=== PATIENT | male | born 1980 | race Caucasian/White ===

== ENCOUNTER 2017-11-03 13:23 | Emergency (ER) | payer OTHER ==
[~2017-11-03] VITALS: Ht 165.1 cm; Wt 72.6 kg
[~2017-11-03 13:23] MED LIST: AZIT250 PO; Benadryl 50 mg50 MG PO; FLUC200 PO; FLUO10 PO; FLUO20 PO; GABA300 PO; GABA800 PO; HYDR1TAB94 PO; Norco 5-325 Ta1 EACH PO; OXYACE5T PO; PHENA200 PO; PREDNISONE TAPER; PSEU120ER PO; Prozac40 MG PO; SULTRIDS PO
[2017-11-03] MEDS ORDERED: Hydrocodone-Ap1 EA23 PO (13:50)
[2017-11-03] MEDS ORDERED: GABA600 PO (13:50)
[2017-11-03] MEDS ORDERED: Prozac40 MG PO (13:50)
== END 2017-11-03 14:08 | disposition home or self-care (01) ==
LOC: ER 13:23
DX: R25.2 Cramp and spasm (principal); R53.81 Other malaise; R53.83 Other fatigue; R63.1 Polydipsia; K13.0 Diseases of lips; F32.9 Major depressive disorder, single episode, unspecified; Z87.442 Personal history of urinary calculi; Z88.0 Allergy status to penicillin
CPT/HCPCS: 99283

== ENCOUNTER 2018-04-02 23:21 | Emergency (ER) | payer OTHER ==
[~2018-04-02] VITALS: Ht 167.6 cm; Wt 63.5 kg
[~2018-04-02 23:21] MED LIST changes: +GABA600 PO; +Hydrocodone-Ap1 EA23 PO
[2018-04-03 00:04] LABS: Source, Urine Clean Catch
[2018-04-03 00:19] LABS: Blood, Urine 5+ (Neg); Glucose Qualitative, Urine Neg (Neg); Ketones, Urine 1+ (Neg); Leukocyte Esterase, Urine 3+ (Neg); Nitrite, Urine Pos (Neg); Protein, Urine 4+ (Neg); Specific Gravity, Urine 1.025 (1.003-1.022); Urobilinogen, Urine 1+ (Normal)
[2018-04-03 00:20] LABS: Appearance, Urine Turbid (Clear); Bilirubin, Urine 1+ (Neg); Color, Urine Brown (P-Yellow)
[2018-04-03 00:33] LABS: Bacteria Many /hpf; Red Blood Cells, Urine TNTC /hpf (0-2); Squamous Epithelial Cells Not Seen /hpf (Few); White Blood Cells, Urine 50-100 /hpf (0-5)
[2018-04-03 02:42] LABS: BASOPHILS ABSOLUTE AUTO 0.03 K/mm3 (0.00-0.23); BASOPHILS PERCENT AUTO 0 % (0-2); EOSINOPHILS ABSOLUTE AUTO 0.28 K/mm3 (0.00-0.68); EOSINOPHILS PERCENT AUTO 3 % (0-6); Hematocrit 46.7 % (37.0-53.0); Hemoglobin 15.5 g/dL (13.5-17.5); IMMATURE GRAN ABSOLUTE AUTO 0.02 K/mm3 (0.00-0.10); IMMATURE GRAN PERCENT AUTO 0 % (0-1); LYMPHOCYTES PERCENT AUTO 21 % (21-46); MONOCYTES ABSOLUTE AUTO 0.89 K/mm3 (0.16-1.47); MONOCYTES PERCENT AUTO 10 % (4-13); Mean Corpuscular HGB 30.4 pg (26.0-34.0); Mean Corpuscular HGB Conc 33.2 g/dL (31.5-36.5); Mean Corpuscular Volume 92 fL (80-100); Mean Platelet Volume 10.8 fL (9.1-12.4); NEUTROPHILS PERCENT AUTO 65 % (41-73); Platelet Count 257 K/mm3 (150-400); RDW Coefficient Variation 13.3 % (11.7-14.2); RDW Standard Deviation 44.9 fL (35.1-46.3); White Blood Cell Count 9.02 K/mm3 (4.00-11.30)
[2018-04-03 03:16] LABS: Alanine Aminotransfer (ALT/SGP 24 U/L (12-78); Albumin, Blood 3.5 g/dL (3.4-5.0); Albumin/Globulin Ratio 1.1 (0.8-1.8); Alk Phos 70 U/L (50-136); Anion Gap 6 mmol/L (6-16); Aspartate Aminotrans (AST/SGOT 23 U/L (12-37); Bilirubin, Total 0.3 mg/dL (0.1-1.0); Blood Urea Nitrogen 23 mg/dL (8-24); Bun/Creatinine Ratio 24.7 (12.0-20.0); CO2, Blood 31 mmol/L (21-32); CPK Creatine Kinase 125 U/L (39-308); Chloride, Blood 105 mmol/L (98-108); Creatinine, Blood 0.93 mg/dL (0.60-1.20); Globulin, Blood 3.3 g/dL (2.2-4.0); Glomerular Filtration Rate >60 (60-); Glucose, Blood 129 mg/dL (70-99); Potassium, Blood 3.5 mmol/L (3.5-5.5); Sodium, Blood 142 mmol/L (136-145); Total Protein, Blood 6.8 g/dL (6.4-8.2)
[2018-04-03] MEDS ORDERED: Percocet 5-3251 EACH PO (05:54)
[2018-04-03] MEDS ORDERED: Cipro500 MG PO (05:54)
[2018-04-03 08:07] LABS: U Amphetamine Screen DETECTED; U Barbituate Screen Not Detected; U Benzodiazapine Screen Not Detected; U Buprenorphine Screen Not Detected; U Cannabinoids Screen DETECTED; U Cocaine Screen Not Detected; U Methadone Screen Not Detected; U Methamphetamine Screen Not Detected; U Opiates Screen Not Detected; U Oxycodone Screen Not Detected; U Phencyclidine Screen Not Detected; U Propoxyphene Screen Not Detected
== END 2018-04-03 09:28 | disposition home or self-care (01) ==
LOC: ER 23:21
PROVIDERS: Emergency Medicine
DX: N13.2 Hydronephrosis with renal and ureteral calculous obstruction (principal); N30.90 Cystitis, unspecified without hematuria; F32.9 Major depressive disorder, single episode, unspecified; Z88.0 Allergy status to penicillin
CPT/HCPCS: 36415; 74176; 80053; 81001; 82550; 83690; 85025; 87086; 96360; 99284-25; J7030

== ENCOUNTER 2018-10-07 14:00 | Emergency (ER) | payer MEDICAID ==
[~2018-10-07] VITALS: Ht 162.6 cm; Wt 70.3 kg
[~2018-10-07 14:00] MED LIST changes: +Cipro500 MG PO; +Percocet 5-3251 EACH PO
[2018-10-07] MEDS ORDERED: Cleocin HCl300 MG PO (14:27)
[2018-10-07] MEDS ORDERED: OLAN10 PO (16:09)
[2018-10-07] MEDS ORDERED: FLUO10 (16:10)
[2018-10-07] MEDS ORDERED: GABA800 (16:10)
== END 2018-10-07 14:30 | disposition home or self-care (01) ==
LOC: ER 14:00
DX: K02.9 Dental caries, unspecified (principal); F32.9 Major depressive disorder, single episode, unspecified; F17.210 Nicotine dependence, cigarettes, uncomplicated; Z88.0 Allergy status to penicillin; Z79.2 Long term (current) use of antibiotics; Z87.442 Personal history of urinary calculi
CPT/HCPCS: 99282

== ENCOUNTER 2018-12-09 03:57 | Emergency (ER) | payer OTHER ==
[~2018-12-09] VITALS: Ht 167.6 cm; Wt 72.6 kg
[~2018-12-09 03:57] MED LIST changes: +Cleocin HCl300 MG PO; +FLUO10; +GABA800; +OLAN10 PO
[2018-12-09] MEDS ORDERED: Lotrimin AF90 GM TOP ×2 (08:13→08:30)
[2018-12-09] MEDS ORDERED: OLAN10 PO ×2 (08:13→08:30)
[2018-12-09] MEDS ORDERED: FLUO10 PO ×2 (08:13→08:30)
[2018-12-09] MEDS ORDERED: GABA800 PO ×2 (08:13→08:30)
== END 2018-12-09 08:35 | disposition home or self-care (01) ==
LOC: ER 03:57
DX: B35.3 Tinea pedis (principal); Z76.0 Encounter for issue of repeat prescription; F31.9 Bipolar disorder, unspecified; F20.9 Schizophrenia, unspecified; F17.210 Nicotine dependence, cigarettes, uncomplicated; Z88.0 Allergy status to penicillin; Z79.899 Other long term (current) drug therapy
CPT/HCPCS: 99283

== ENCOUNTER 2018-12-18 08:08 | Emergency (ER) | payer OTHER ==
[~2018-12-18] VITALS: Ht 167.6 cm; Wt 74.8 kg
[~2018-12-18 08:08] MED LIST changes: +Lotrimin AF90 GM TOP
[2018-12-18 09:50] LABS: BASOPHILS ABSOLUTE AUTO 0.07 K/mm3 (0.00-0.23); BASOPHILS PERCENT AUTO 0 % (0-2); EOSINOPHILS ABSOLUTE AUTO 0.14 K/mm3 (0.00-0.68); EOSINOPHILS PERCENT AUTO 1 % (0-6); Hematocrit 52.4 % (37.0-53.0); Hemoglobin 17.3 g/dL (13.5-17.5); IMMATURE GRAN ABSOLUTE AUTO 0.19 K/mm3 (0.00-0.10); IMMATURE GRAN PERCENT AUTO 1 % (0-1); LYMPHOCYTES ABSOLUTE AUTO 1.62 K/mm3 (0.84-5.20); LYMPHOCYTES PERCENT AUTO 9 % (21-46); MONOCYTES ABSOLUTE AUTO 1.78 K/mm3 (0.16-1.47); MONOCYTES PERCENT AUTO 10 % (4-13); Mean Corpuscular HGB 30.5 pg (26.0-34.0); Mean Corpuscular Volume 92 fL (80-100); Mean Platelet Volume 10.7 fL (9.1-12.4); NEUTROPHILS ABSOLUTE AUTO 13.64 K/mm3 (1.96-9.15); NEUTROPHILS PERCENT AUTO 78 % (41-73); Platelet Count 301 K/mm3 (150-400); RDW Coefficient Variation 13.9 % (11.7-14.2); RDW Standard Deviation 47.9 fL (35.1-46.3); Red Blood Cell Count 5.67 M/mm3 (4.30-5.90); White Blood Cell Count 17.44 K/mm3 (4.00-11.30)
[2018-12-18 10:14] LABS: Alanine Aminotransfer (ALT/SGP 58 U/L (12-78); Albumin, Blood 4.5 g/dL (3.4-5.0); Albumin/Globulin Ratio 1.1 (0.8-1.8); Alk Phos 110 U/L (50-136); Anion Gap 9 mmol/L (6-16); Aspartate Aminotrans (AST/SGOT 54 U/L (12-37); Bilirubin, Total 0.5 mg/dL (0.1-1.0); Blood Urea Nitrogen 17 mg/dL (8-24); Bun/Creatinine Ratio 25.4 (12.0-20.0); CO2, Blood 28 mmol/L (21-32); Calcium, Blood 10.1 mg/dL (8.5-10.1); Chloride, Blood 99 mmol/L (98-108); Creatinine, Blood 0.67 mg/dL (0.60-1.20); Glomerular Filtration Rate >60 (60-); Glucose, Blood 109 mg/dL (70-99); Potassium, Blood 4.5 mmol/L (3.5-5.5); Sodium, Blood 136 mmol/L (136-145); Total Protein, Blood 8.5 g/dL (6.4-8.2)
[2018-12-18] MEDS ORDERED: Vibramycin100 MG PO (12:49)
== END 2018-12-18 12:56 | disposition home or self-care (01) ==
LOC: ER 08:08
PROVIDERS: Emergency Medicine
DX: L03.116 Cellulitis of left lower limb (principal); F31.9 Bipolar disorder, unspecified; F20.9 Schizophrenia, unspecified; F32.9 Major depressive disorder, single episode, unspecified; Z87.442 Personal history of urinary calculi; F17.210 Nicotine dependence, cigarettes, uncomplicated
CPT/HCPCS: 36415; 73610; 80053; 83605; 85025; 96361; 96365; 96375; 99283-25; J1885; J7030

== ENCOUNTER 2021-07-20 08:19 | Emergency (ER) | payer OTHER ==
[~2021-07-20] VITALS: Ht 167.6 cm; Wt 78.0 kg
[~2021-07-20 08:19] MED LIST changes: +Vibramycin100 MG PO
== END 2021-07-20 10:08 | disposition home or self-care (01) ==
LOC: ER 08:19
DX: S39.012A Strain of muscle, fascia and tendon of lower back, initial encounter (principal); Z87.891 Personal history of nicotine dependence; Z88.0 Allergy status to penicillin; Z88.5 Allergy status to narcotic agent; X50.0XXA Overexertion from strenuous movement or load, initial encounter
CPT/HCPCS: 96372; 99283-25; A9270; J1885

== ENCOUNTER 2021-09-24 20:16 | Emergency (ER) | payer OTHER ==
[~2021-09-24] VITALS: Ht 167.6 cm; Wt 77.1 kg
[2021-09-24] MEDS ORDERED: CLIN150 PO (20:29)
== END 2021-09-25 00:02 | disposition home or self-care (01) ==
LOC: ER 20:16
DX: K04.7 Periapical abscess without sinus (principal); F17.210 Nicotine dependence, cigarettes, uncomplicated; Z88.0 Allergy status to penicillin; Z88.5 Allergy status to narcotic agent
CPT/HCPCS: A9270

== ENCOUNTER 2021-09-28 15:45 | Emergency (ER) | payer OTHER ==
[~2021-09-28] VITALS: Ht 167.6 cm; Wt 79.4 kg
[~2021-09-28 15:45] MED LIST changes: +CLIN150 PO
[2021-09-28] MEDS ORDERED: CLIN300 PO (16:12)
[2021-09-28] MEDS ORDERED: AMOCLA875 PO (16:28)
== END 2021-09-28 16:35 | disposition home or self-care (01) ==
LOC: ER 15:45
DX: K04.7 Periapical abscess without sinus (principal); Z88.0 Allergy status to penicillin; F17.290 Nicotine dependence, other tobacco product, uncomplicated
CPT/HCPCS: 99282

== ENCOUNTER 2021-12-02 18:37 | Emergency (ER) | payer OTHER ==
[~2021-12-02] VITALS: Ht 167.6 cm; Wt 79.4 kg
[~2021-12-02 18:37] MED LIST changes: +AMOCLA875 PO; +CLIN300 PO
[2021-12-02 19:37] LABS: BASOPHILS ABSOLUTE AUTO 0.07 K/mm3 (0.00-0.23); BASOPHILS PERCENT AUTO 1 % (0-2); EOSINOPHILS ABSOLUTE AUTO 0.25 K/mm3 (0.00-0.68); EOSINOPHILS PERCENT AUTO 2 % (0-6); Hematocrit 47.8 % (37.0-53.0); Hemoglobin 15.9 g/dL (13.5-17.5); IMMATURE GRAN ABSOLUTE AUTO 0.09 K/mm3 (0.00-0.10); IMMATURE GRAN PERCENT AUTO 1 % (0-1); LYMPHOCYTES ABSOLUTE AUTO 2.26 K/mm3 (0.84-5.20); LYMPHOCYTES PERCENT AUTO 19 % (21-46); MONOCYTES ABSOLUTE AUTO 0.78 K/mm3 (0.16-1.47); MONOCYTES PERCENT AUTO 7 % (4-13); Mean Corpuscular HGB 30.6 pg (26.0-34.0); Mean Corpuscular HGB Conc 33.3 g/dL (31.5-36.5); Mean Corpuscular Volume 92 fL (80-100); Mean Platelet Volume 11.3 fL (9.1-12.4); NEUTROPHILS ABSOLUTE AUTO 8.25 K/mm3 (1.96-9.15); NEUTROPHILS PERCENT AUTO 71 % (41-73); Platelet Count 262 K/mm3 (150-400); RDW Coefficient Variation 13.5 % (11.7-14.2); RDW Standard Deviation 46.5 fL (35.1-46.3); Red Blood Cell Count 5.19 M/mm3 (4.30-5.90)
[2021-12-02 19:59] LABS: Alanine Aminotransfer (ALT/SGP 55 U/L (12-78); Albumin, Blood 3.8 g/dL (3.4-5.0); Albumin/Globulin Ratio 1.3 (0.8-1.8); Alk Phos 54 U/L (50-136); Anion Gap 7 mmol/L (6-16); Aspartate Aminotrans (AST/SGOT 23 U/L (12-37); Bilirubin, Total 0.2 mg/dL (0.1-1.0); Blood Urea Nitrogen 21 mg/dL (8-24); Bun/Creatinine Ratio 23.8 (12.0-20.0); CO2, Blood 26 mmol/L (21-32); Calcium, Blood 9.4 mg/dL (8.5-10.1); Chloride, Blood 105 mmol/L (98-108); Creatinine, Blood 0.88 mg/dL (0.60-1.20); Glomerular Filtration Rate >60 (60-); Glucose, Blood 183 mg/dL (70-99); Potassium, Blood 3.7 mmol/L (3.5-5.5); Sodium, Blood 138 mmol/L (136-145); Total Protein, Blood 6.8 g/dL (6.4-8.2)
== END 2021-12-02 21:03 | disposition home or self-care (01) ==
LOC: ER 18:37
PROVIDERS: Student in an Organized Health Care Education/Training Program
DX: R55 Syncope and collapse (principal); S00.531A Contusion of lip, initial encounter; W19.XXXA Unspecified fall, initial encounter
CPT/HCPCS: 71045; 80053; 84484; 85025; 93005; 93010; 99284-25

== ENCOUNTER 2022-03-21 16:59 | Observation (INO) | payer OTHER ==
[~2022-03-21] VITALS: Ht 167.6 cm; Wt 65.8 kg
[2022-03-21 18:27] LABS: BASOPHILS ABSOLUTE AUTO 0.06 K/mm3 (0.00-0.23); BASOPHILS PERCENT AUTO 1 % (0-2); EOSINOPHILS ABSOLUTE AUTO 0.13 K/mm3 (0.00-0.68); EOSINOPHILS PERCENT AUTO 1 % (0-6); Hematocrit 49.2 % (37.0-53.0); Hemoglobin 16.7 g/dL (13.5-17.5); IMMATURE GRAN ABSOLUTE AUTO 0.02 K/mm3 (0.00-0.10); IMMATURE GRAN PERCENT AUTO 0 % (0-1); LYMPHOCYTES ABSOLUTE AUTO 1.76 K/mm3 (0.84-5.20); LYMPHOCYTES PERCENT AUTO 19 % (21-46); MONOCYTES PERCENT AUTO 10 % (4-13); Mean Corpuscular HGB 30.1 pg (26.0-34.0); Mean Corpuscular HGB Conc 33.9 g/dL (31.5-36.5); Mean Corpuscular Volume 89 fL (80-100); Mean Platelet Volume 10.3 fL (9.1-12.4); NEUTROPHILS ABSOLUTE AUTO 6.31 K/mm3 (1.96-9.15); NEUTROPHILS PERCENT AUTO 69 % (41-73); Platelet Count 351 K/mm3 (150-400); RDW Coefficient Variation 13.6 % (11.7-14.2); RDW Standard Deviation 44.1 fL (35.1-46.3); Red Blood Cell Count 5.55 M/mm3 (4.30-5.90); White Blood Cell Count 9.18 K/mm3 (4.00-11.30)
[2022-03-21 18:52] LABS: Ethanol (Alcohol), Blood, Med <3 mg/dL; Salicylate <1.7 mg/dL (2.8-20.0)
[2022-03-21 19:01] LABS: Acetaminophen, Random <2.0 ug/mL (10.0-30.0); Alanine Aminotransfer (ALT/SGP 33 U/L (12-78); Albumin, Blood 4.4 g/dL (3.4-5.0); Albumin/Globulin Ratio 1.3 (0.8-1.8); Alk Phos 76 U/L (50-136); Anion Gap 5 mmol/L (6-16); Aspartate Aminotrans (AST/SGOT 28 U/L (12-37); Bilirubin, Total 0.7 mg/dL (0.1-1.0); Blood Urea Nitrogen 33 mg/dL (8-24); Bun/Creatinine Ratio 35.5 (12.0-20.0); CO2, Blood 30 mmol/L (21-32); Calcium, Blood 9.9 mg/dL (8.5-10.1); Chloride, Blood 106 mmol/L (98-108); Creatinine, Blood 0.93 mg/dL (0.60-1.20); Globulin, Blood 3.4 g/dL (2.2-4.0); Glomerular Filtration Rate 106 (60-); Glucose, Blood 92 mg/dL (70-99); Potassium, Blood 3.5 mmol/L (3.5-5.5); Sodium, Blood 141 mmol/L (136-145); Total Protein, Blood 7.8 g/dL (6.4-8.2)
[2022-03-21 19:45] LABS: Influenza A, PCR NEGATIVE (NEGATIVE); Influenza B, PCR NEGATIVE (NEGATIVE); Resp Syncytial Virus, PCR NEGATIVE (NEGATIVE); SARS-Cov-2 (COVID-19) PCR, MMC NEGATIVE (NEGATIVE)
== END 2022-03-22 11:20 | disposition home or self-care (01) ==
LOC: ER 16:59 → EOR 17:00
PROVIDERS: ADMIT Emergency Medicine
DX: F23 Brief psychotic disorder (principal); R45.851 Suicidal ideations; Z88.0 Allergy status to penicillin; Z88.6 Allergy status to analgesic agent; Z88.5 Allergy status to narcotic agent; Z90.49 Acquired absence of other specified parts of digestive tract; Z20.822 Contact with and (suspected) exposure to COVID-19
CPT/HCPCS: 0241U; 36415; 80053; 85025; 86592; 93005; 93010; G0480

== ENCOUNTER 2022-03-26 15:32 | Emergency (ER) | payer OTHER ==
[~2022-03-26] VITALS: Ht 167.6 cm; Wt 59.0 kg
[2022-03-26 17:23] LABS: BASOPHILS ABSOLUTE AUTO 0.03 K/mm3 (0.00-0.23); BASOPHILS PERCENT AUTO 0 % (0-2); EOSINOPHILS ABSOLUTE AUTO 0.15 K/mm3 (0.00-0.68); EOSINOPHILS PERCENT AUTO 2 % (0-6); Hematocrit 45.8 % (37.0-53.0); Hemoglobin 15.5 g/dL (13.5-17.5); IMMATURE GRAN ABSOLUTE AUTO 0.03 K/mm3 (0.00-0.10); IMMATURE GRAN PERCENT AUTO 0 % (0-1); LYMPHOCYTES ABSOLUTE AUTO 1.55 K/mm3 (0.84-5.20); LYMPHOCYTES PERCENT AUTO 18 % (21-46); MONOCYTES PERCENT AUTO 6 % (4-13); Mean Corpuscular HGB 30.3 pg (26.0-34.0); Mean Corpuscular HGB Conc 33.8 g/dL (31.5-36.5); Mean Corpuscular Volume 90 fL (80-100); Mean Platelet Volume 10.7 fL (9.1-12.4); NEUTROPHILS PERCENT AUTO 74 % (41-73); Platelet Count 305 K/mm3 (150-400); RDW Coefficient Variation 13.3 % (11.7-14.2); Red Blood Cell Count 5.11 M/mm3 (4.30-5.90); White Blood Cell Count 8.66 K/mm3 (4.00-11.30)
[2022-03-26 17:39] LABS: Alanine Aminotransfer (ALT/SGP 27 U/L (12-78); Albumin, Blood 4.2 g/dL (3.4-5.0); Albumin/Globulin Ratio 1.4 (0.8-1.8); Alk Phos 76 U/L (50-136); Anion Gap 4 mmol/L (6-16); Aspartate Aminotrans (AST/SGOT 22 U/L (12-37); Bilirubin, Total 0.4 mg/dL (0.1-1.0); Blood Urea Nitrogen 17 mg/dL (8-24); Bun/Creatinine Ratio 17.2 (12.0-20.0); CO2, Blood 34 mmol/L (21-32); Calcium, Blood 9.6 mg/dL (8.5-10.1); Chloride, Blood 104 mmol/L (98-108); Creatinine, Blood 0.99 mg/dL (0.60-1.20); Ethanol (Alcohol), Blood, Med <3 mg/dL; Globulin, Blood 2.9 g/dL (2.2-4.0); Glomerular Filtration Rate 99 (60-); Glucose, Blood 95 mg/dL (70-99); Potassium, Blood 4.3 mmol/L (3.5-5.5); Sodium, Blood 142 mmol/L (136-145); Total Protein, Blood 7.1 g/dL (6.4-8.2)
== END 2022-03-26 18:51 | disposition home or self-care (01) ==
LOC: ER 15:32
PROVIDERS: Physician Assistant
DX: S01.01XA Laceration without foreign body of scalp, initial encounter (principal); X58.XXXA Exposure to other specified factors, initial encounter; F17.290 Nicotine dependence, other tobacco product, uncomplicated; Z88.0 Allergy status to penicillin; Z88.5 Allergy status to narcotic agent; Z88.6 Allergy status to analgesic agent
CPT/HCPCS: 12002; 36415; 70450; 80053; 85025; 90471; 90714; 93005; 93010; 99284-25; G0480

== ENCOUNTER 2022-04-18 09:24 | Emergency (ER) | payer OTHER ==
[~2022-04-18] VITALS: Ht 167.6 cm; Wt 63.5 kg
[2022-04-18] MEDS ORDERED: OLAN10 PO (10:06)
== END 2022-04-18 10:09 | disposition home or self-care (01) ==
LOC: ER 09:24
DX: Z76.0 Encounter for issue of repeat prescription (principal); Z88.0 Allergy status to penicillin; Z88.5 Allergy status to narcotic agent
CPT/HCPCS: 99281

== ENCOUNTER 2023-05-19 11:50 | Inpatient (IN) | payer OTHER ==
[~2023-05-19] VITALS: Ht 167.6 cm; Wt 60.3 kg
[2023-05-19 12:40] LABS: BASOPHILS ABSOLUTE AUTO 0.09 K/mm3 (0.00-0.23); BASOPHILS PERCENT AUTO 1 % (0-2); EOSINOPHILS ABSOLUTE AUTO 0.21 K/mm3 (0.00-0.68); EOSINOPHILS PERCENT AUTO 2 % (0-6); Hematocrit 47.9 % (37.0-53.0); Hemoglobin 15.3 g/dL (13.5-17.5); IMMATURE GRAN ABSOLUTE AUTO 0.04 K/mm3 (0.00-0.10); IMMATURE GRAN PERCENT AUTO 0 % (0-1); LYMPHOCYTES ABSOLUTE AUTO 1.77 K/mm3 (0.84-5.20); LYMPHOCYTES PERCENT AUTO 19 % (21-46); MONOCYTES ABSOLUTE AUTO 1.01 K/mm3 (0.16-1.47); MONOCYTES PERCENT AUTO 11 % (4-13); Mean Corpuscular HGB 30.1 pg (26.0-34.0); Mean Corpuscular HGB Conc 31.9 g/dL (31.5-36.5); Mean Corpuscular Volume 94 fL (80-100); Mean Platelet Volume 10.7 fL (9.1-12.4); NEUTROPHILS ABSOLUTE AUTO 6.02 K/mm3 (1.96-9.15); NEUTROPHILS PERCENT AUTO 66 % (41-73); Platelet Count 300 K/mm3 (150-400); RDW Coefficient Variation 13.8 % (11.7-14.2); Red Blood Cell Count 5.09 M/mm3 (4.30-5.90); White Blood Cell Count 9.14 K/mm3 (4.00-11.30)
[2023-05-19 12:51] LABS: C-REACTIVE PROTEIN, EXT RANGE <0.290 mg/dL (0.000-0.300)
[2023-05-19 12:53] LABS: Alanine Aminotransfer (ALT/SGP 29 U/L (12-78); Albumin, Blood 3.9 g/dL (3.4-5.0); Albumin/Globulin Ratio 1.1 (0.8-1.8); Alk Phos 93 U/L (50-136); Anion Gap 6 mmol/L (6-16); Aspartate Aminotrans (AST/SGOT 23 U/L (12-37); Bilirubin, Total 0.1 mg/dL (0.1-1.0); Blood Urea Nitrogen 14 mg/dL (8-24); Bun/Creatinine Ratio 15.5 (12.0-20.0); CO2, Blood 26 mmol/L (21-32); Calcium, Blood 9.1 mg/dL (8.5-10.1); Chloride, Blood 108 mmol/L (98-108); Globulin, Blood 3.6 g/dL (2.2-4.0); Glomerular Filtration Rate 110 (60-); Glucose, Blood 167 mg/dL (70-99); Potassium, Blood 3.7 mmol/L (3.5-5.5); Sodium, Blood 140 mmol/L (136-145); Total Protein, Blood 7.5 g/dL (6.4-8.2)
[2023-05-19 21:12] VITALS: BP 121/89
--- NOTE | 2023-05-19 21:30 | NUR ---
NEW ADMIT PATIENT ARRIVED TO ROOM 306 FROM THE ER VIA A GURNEY AT 2106 ON 05/19/23. IV ANTIBIOTICS RUNNING UPON ARRIVAL; SEE EMAR. PATIENT DROWSY BUT ABLE TO SCOOT HEMSELF FROM THE GURNEY TO THE HOSPITAL BED. AT THIS TIME PATIENT APPEARS TO BE A POOR HISTORIAN.
[2023-05-20] VITALS (17 sets, daily range): BP systolic 108–154; BP diastolic 63–109
--- NOTE | 2023-05-20 00:17 | NUR ---
CONSULT CALLED ANSWERING SERVICE FOR CONSULT WITH WILLIAM MALIK 05/20/23 AT 0011.
--- NOTE | 2023-05-20 04:21 | NUR ---
SHIFT SUMMARY PATIENT ALERT AND ORIENTED TO PERSON, PLACE, AND SITUATION. PATIENT SLEPT MOST OF SHIFT RESPIRATION EVEN AND UNLABORED. PT. COMPLAINT OF PAIN IN RT GROIN/THIGH; ASSESSED AND MEDICATED PER EMAR. PATIENT NPO AT MIDNIGHT FOR SURGICAL CONSULT IN AM WITH WILLIAM MALIK. NS INFUSING AT 125ML/HR. BED IS IN THE LOWEST POSITION, CALL LIGHT IS WITHIN REACH. NO S/S OF DISTRESS AT THIS TIME.
[2023-05-20 05:22] LABS: BASOPHILS ABSOLUTE AUTO 0.05 K/mm3 (0.00-0.23); BASOPHILS PERCENT AUTO 1 % (0-2); EOSINOPHILS ABSOLUTE AUTO 0.27 K/mm3 (0.00-0.68); EOSINOPHILS PERCENT AUTO 4 % (0-6); Hematocrit 44.8 % (37.0-53.0); Hemoglobin 14.6 g/dL (13.5-17.5); IMMATURE GRAN ABSOLUTE AUTO 0.02 K/mm3 (0.00-0.10); IMMATURE GRAN PERCENT AUTO 0 % (0-1); LYMPHOCYTES ABSOLUTE AUTO 1.95 K/mm3 (0.84-5.20); LYMPHOCYTES PERCENT AUTO 27 % (21-46); MONOCYTES ABSOLUTE AUTO 0.75 K/mm3 (0.16-1.47); MONOCYTES PERCENT AUTO 10 % (4-13); Mean Corpuscular HGB 29.6 pg (26.0-34.0); Mean Corpuscular HGB Conc 32.6 g/dL (31.5-36.5); Mean Corpuscular Volume 91 fL (80-100); Mean Platelet Volume 11.1 fL (9.1-12.4); NEUTROPHILS PERCENT AUTO 58 % (41-73); Platelet Count 278 K/mm3 (150-400); RDW Coefficient Variation 13.7 % (11.7-14.2); RDW Standard Deviation 46.3 fL (35.1-46.3); Red Blood Cell Count 4.94 M/mm3 (4.30-5.90); White Blood Cell Count 7.24 K/mm3 (4.00-11.30)
[2023-05-20 05:43] LABS: Albumin/Globulin Ratio 1.1 (0.8-1.8); Bilirubin, Total 0.4 mg/dL (0.1-1.0); Bun/Creatinine Ratio 14.4 (12.0-20.0); Calcium, Blood 8.3 mg/dL (8.5-10.1); Creatinine, Blood 0.83 mg/dL (0.60-1.20); Globulin, Blood 2.8 g/dL (2.2-4.0); Potassium, Blood 4.1 mmol/L (3.5-5.5); Total Protein, Blood 5.8 g/dL (6.4-8.2)
--- NOTE | 2023-05-20 06:09 | NUR ---
NOTES AND ASSESSMENTS REVIEWED.
[2023-05-20 15:08] LABS: U Amphetamine Screen DETECTED; U Barbituate Screen Not Detected; U Benzodiazapine Screen Not Detected; U Cannabinoids Screen DETECTED; U Cocaine Screen Not Detected; U Methadone Screen Not Detected; U Methamphetamine Screen DETECTED; U Opiates Screen DETECTED; U Phencyclidine Screen Not Detected
[2023-05-20 15:09] LABS: U Buprenorphine Screen Not Detected; U Oxycodone Screen Not Detected; U Propoxyphene Screen Not Detected
--- NOTE | 2023-05-20 18:25 | NUR ---
SHIFT SUMMARY; PATIENT WAS VERY PAINFULL THIS AM AND ASKING REPEATEDLY FOR PAIN MEDICATIONS. HE WAS UNABLE TO VOID THIS AM AND ONLY VOIDED AFTER RETURNING FROM SURGERY 1200ML. PATIENT WENT TO SURGERY THIS AM AND HAD I AND D ON HIS RIGHT GROIN AREA. CULTURES WERE SENT AND HAVE NOT RETURNED YET. HIS MOM WAS AT BEDSIDE WHEN HE RETURNED. LONG DISCUSSIONS WITH HIS MOM ENSUED WITH ISACC DECIDING TO RETURN TO [place] WITH HER AT DISCHARGE AND ENTERING A SOBER LIVING FACILITY.
[2023-05-20 19:43] LABS: Vancomycin, Trough 16.7 ug/mL (5.0-10.0)
--- NOTE | 2023-05-21 04:22 | NUR ---
SHIFT SUMMARY PATIENT HAD NO ACUTE CHANGES. AXOX 4 AND ONE ASSIST TO BSC. USES URINAL AT BEDSIDE. PIV REMAINS INTACT. NS INFUSING @ 125 mL/HR. IV ABX INFUSED. REPORTED GROIN PAIN X ONE AND IV TORADOL 15 MG GIVEN PER EMAR. VSS/AFEBRILE. DENIES CHEST PAIN, SOB, AND N/V. COOPERATIVE WITH CARE. CALL LIGHT IN REACH. BED IN LOWEST POSITION. WILL CONTINUE TO MONITOR UNTIL DAY SHIFT NURSE ASSUMES CARE.
[2023-05-21 05:04] LABS: BASOPHILS ABSOLUTE AUTO 0.05 K/mm3 (0.00-0.23); BASOPHILS PERCENT AUTO 1 % (0-2); EOSINOPHILS ABSOLUTE AUTO 0.37 K/mm3 (0.00-0.68); EOSINOPHILS PERCENT AUTO 5 % (0-6); Hematocrit 43.6 % (37.0-53.0); Hemoglobin 14.3 g/dL (13.5-17.5); IMMATURE GRAN ABSOLUTE AUTO 0.03 K/mm3 (0.00-0.10); IMMATURE GRAN PERCENT AUTO 0 % (0-1); LYMPHOCYTES ABSOLUTE AUTO 1.71 K/mm3 (0.84-5.20); LYMPHOCYTES PERCENT AUTO 23 % (21-46); MONOCYTES ABSOLUTE AUTO 0.67 K/mm3 (0.16-1.47); MONOCYTES PERCENT AUTO 9 % (4-13); Mean Corpuscular HGB 29.6 pg (26.0-34.0); Mean Corpuscular HGB Conc 32.8 g/dL (31.5-36.5); Mean Corpuscular Volume 90 fL (80-100); Mean Platelet Volume 10.8 fL (9.1-12.4); NEUTROPHILS ABSOLUTE AUTO 4.58 K/mm3 (1.96-9.15); NEUTROPHILS PERCENT AUTO 62 % (41-73); Platelet Count 280 K/mm3 (150-400); RDW Coefficient Variation 13.4 % (11.7-14.2); RDW Standard Deviation 44.9 fL (35.1-46.3); Red Blood Cell Count 4.83 M/mm3 (4.30-5.90); White Blood Cell Count 7.41 K/mm3 (4.00-11.30)
[2023-05-21 05:28] VITALS: BP 122/87
[2023-05-21 05:30] LABS: Albumin, Blood 2.7 g/dL (3.4-5.0); Bilirubin, Total 0.2 mg/dL (0.1-1.0); Bun/Creatinine Ratio 17.6 (12.0-20.0); Calcium, Blood 8.2 mg/dL (8.5-10.1); Creatinine, Blood 0.85 mg/dL (0.60-1.20); Globulin, Blood 2.8 g/dL (2.2-4.0); Total Protein, Blood 5.5 g/dL (6.4-8.2)
[2023-05-21 07:33] VITALS: BP 140/97
[2023-05-21 09:09] LABS: HBSAG SCREEN Negative (Negative); HCV ANTIBODY Non Reactive (Non Reactive); HEP B CORE AB, TOT Negative (Negative)
[2023-05-21 15:41] VITALS: BP 122/94
--- NOTE | 2023-05-21 18:25 | NUR ---
THE PATIENT HAS BEEN SLEEPING, OFF AND ON DURING THE SHIFT, HE IS A&O X4 AND FOLLOWS COMMANDS. THE PATIENT HAD HIS WOUND DRESSING CHANGED BY DR. MALIK TO AND WOUND CARE CONSULTION HAS BEEN ORDERED. THE PATIENT ASKED FOR SOME A ADIVAN TO HELP HIM SLEEP, I CALLED HIS DOCTOR AND FORWARDED THE REQUEST, I WILL CONTINUE TO MONITOR HIM.
[2023-05-21 19:33] LABS: Vancomycin, Trough 12.5 ug/mL (5.0-10.0)
[2023-05-21 20:31] VITALS: BP 136/98
--- NOTE | 2023-05-21 20:45 | NUR ---
1999 PT HAD EPISODE OF IRRITABILITY, FOUL LANGUAGE, THROWING THINGS, AND YELLING AT STAFF. SECURITY AND POLICE WERE CALLED. MARBLE SUPERVISOR, VERN AND CONSUMER LENDING MANAGER, MYSELF, WERE ABLE TO GET THE PT TO CALM DOWN. HE STATED HE WANTED TO STAY AND GET TREATMENT BUT HE WANTS SOMETHING FOR ANXIETY AND WANTS THE VISITS TO HIS ROOM TO BE MINIMIZED. HE AGREED TO HIS HS MEDS AND HIS MIDNIGHT ANTIBIOTIC. WE WILL HOLD MORNING VS. HE AGREED TO TRY TO STAY CALMED DOWN AND IS AWARE THAT IF HE DOES NOT STAY CALMED DOWN WE WILL ESCORT HIM OUT PER OUR NO TOLERANCE POLICY. WE ARE GOING TO CALL THE DR AND TRY TO GET HIM SOME MEDICATION FOR ANXIETY. HE WAS GIVEN ATARAX PREVIOUSLY AND IT DOES NOT APPEAR TO BE HELPING. 2139 GOT ATIVAN ORDERED AND UPDATED THE HOSPITALIST AND THE RESIDENT ON WHAT OCCURED AND THE PLAN. WILL GIVE ATIVAN AND EVAL FOR EFFECT.
--- NOTE | 2023-05-22 00:29 | NUR ---
PT STATUS PT WILL NOT ALLOW US TO GET VITAL SIGNS THIS SHIFT. PT WILL NOT ALLOW THOROUGH PHYSICAL ASSESSMENT. PT WILL NOT RESPOND TO ASSESSMENT QUESTIONS. ANGRY AGGRESSIVE OUTBURST AGAINST NURSING STAFF AND SECURITY THIS SHIFT. SEE PREVIOUS NOTES. CHARGE INFORMED. BURGLAR ALARM INSPECTOR INFORMED. HOSPITALIST INFORMED. HE DID PERMIT ME TO DO A CURSORY PHYSICAL ASSESSMENT. HE ALSO PERMITTED US TO ADMINISTER ANTIBIOTICS, NS, AND ATIVAN. SEE EMAR.
--- NOTE | 2023-05-22 03:55 | NUR ---
SHIFT SUMMARY ADMITTED FOR CELLULITIS UPPER RIGHT INNER THIGH. FULL CODE. IV ANTIB RX ARE SCHEDULED. IV FLUIDS INFUSING ORDERED. I&D PERFORMED ON 05/20/23. DR. MALIK IS ORTHO CONSULT. ANXIETY MEDICATION GIVEN 3 TIMES THIS SHIFT. INDEPENDENT IN ROOM. A&O X4. ON REGULAR DIET. ON RA. SEE PREVIOUS NOTES.
[2023-05-22 08:44] VITALS: BP 150/103
--- NOTE | 2023-05-22 09:58 | NUR ---
05/22/23 0958 Stefani Miranda VERIFICATIONS: EDIT CHART.
--- NOTE | 2023-05-22 14:48 | NUR ---
SHIFT SUMMARY WAITING ON DOC RECOMMENDATIONS FOR DISCHARGE. PT VERBALIZING DESIRE TO LEAVE. RECEIVED PHONE CALL FROM MOTHER WHICH RESULTED IN EXPLOSIVE LANGUAGE AND IRRITATED MOOD DIRECTED TOWARD PHONE CALL. PATIENT HAS BEEN APPROPRIATE WITH STAFF THIS SHIFT, ALLOWED WOUND CARE TO PROVIDE CARE. WILL CONTINUE TO MONITOR
[2023-05-22 15:37] VITALS: BP 132/101
--- NOTE | 2023-05-22 15:51 | NUR ---
PHYSICIAN CONTACT CALLED SARAH WITH PATIENT STATEMENTS THAT HE IS LEAVING AMA, STATED TO BE HAVING SOCIAL TYPE DIFFICULTIES WITH HIS MOTHER AND IS VERY UPSET ABOUT THIS. WANTS TO LEAVE HOSPITAL BECAUSE OF THIS. SARAH AGREED TO PRESCRIBE ABX AND WRITE DISCHARGE ORDERS.
[2023-05-22] MEDS ORDERED: CEFP200 PO (16:41)
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
[2023-05-22 21:10] LABS: CHLAMYDIA TRACHOMATIS, NAA Negative (Negative)
--- NOTE | 2023-05-25 17:36 | NUR ---
RECEIVED T/C FROM [facility], PT'S INSURANCE CO IS DECLINING TO PAY FOR ORDERED ANTIBIOTICS (VANTIN). T/C TO DR GARDNER, ORIGINAL ORDERING MD. NEW ORDER OBTAINED FOR CEFDINIR 300 MG PO BID X 10 DAYS, CALLED INTO TO [facility].
== END 2023-05-22 17:21 | disposition home or self-care (01) | DRG 571 ==
LOC: ER 11:50 → MEDS 19:13
PROVIDERS: Family Medicine; Nurse Practitioner Acute Care; Orthopaedic Surgery; Physician Assistant; ADMIT Internal Medicine
PROC: 0J9C0ZZ Drainage of Pelvic Region Subcutaneous Tissue and Fascia, Open Approach (ICD-10-PCS; 2023-05-20)
PROC: 0JBC0ZZ Excision of Pelvic Region Subcutaneous Tissue and Fascia, Open Approach (ICD-10-PCS; principal; 2023-05-20 10:45)
DX: L03.314 Cellulitis of groin (principal); E87.20 Acidosis, unspecified; L03.115 Cellulitis of right lower limb; L02.415 Cutaneous abscess of right lower limb; L02.214 Cutaneous abscess of groin; F15.10 Other stimulant abuse, uncomplicated; F17.210 Nicotine dependence, cigarettes, uncomplicated; M25.551 Pain in right hip; R10.2 Pelvic and perineal pain; M54.50 Low back pain, unspecified; F31.9 Bipolar disorder, unspecified; B95.61 Methicillin susceptible Staphylococcus aureus infection as the cause of diseases classified elsewhere; F12.10 Cannabis abuse, uncomplicated; R03.0 Elevated blood-pressure reading, without diagnosis of hypertension; Z87.442 Personal history of urinary calculi; Z88.5 Allergy status to narcotic agent; Z88.0 Allergy status to penicillin; Z90.49 Acquired absence of other specified parts of digestive tract; Z79.899 Other long term (current) drug therapy; Z98.890 Other specified postprocedural states
CPT/HCPCS: 36415; 74177; 80053; 80202; 83605; 85025; 86140; 86592; 86704; 86803; 87040; 87070; 87075; 87077; 87147; 87186; 87205; 87340; 87491; 87591; 96365-59; 96366; 96375; 99285-25; A9270; J0360; J0692; J0696; J1885; J2060; J2250; J2270; J2405; J2704; J3010; J3370; J7030; J7050; J7120; Q9967

== ENCOUNTER 2024-06-13 20:26 | Emergency (ER) | payer OTHER ==
[~2024-06-13] VITALS: Ht 170.2 cm; Wt 79.4 kg
[~2024-06-13 20:26] MED LIST changes: +CEFP200 PO; +GABA100; +MOOD STABILIZER; +ONDA4ODT MM
[2024-06-13 21:26] LABS: Albumin, Blood 4.3 g/dL (3.4-5.0); Albumin/Globulin Ratio 1.3 (0.8-1.8); BASOPHILS ABSOLUTE AUTO 0.05 K/mm3 (0.00-0.23); BASOPHILS PERCENT AUTO 1 % (0-2); Bilirubin, Total 0.4 mg/dL (0.1-1.0); Bun/Creatinine Ratio 22.2 (12.0-20.0); Calcium, Blood 9.7 mg/dL (8.5-10.1); Creatinine, Blood 0.81 mg/dL (0.60-1.20); EOSINOPHILS ABSOLUTE AUTO 0.16 K/mm3 (0.00-0.68); EOSINOPHILS PERCENT AUTO 2 % (0-6); Globulin, Blood 3.2 g/dL (2.2-4.0); Hematocrit 50.3 % (37.0-53.0); Hemoglobin 17.5 g/dL (13.5-17.5); IMMATURE GRAN ABSOLUTE AUTO 0.03 K/mm3 (0.00-0.10); IMMATURE GRAN PERCENT AUTO 0 % (0-1); LYMPHOCYTES ABSOLUTE AUTO 2.79 K/mm3 (0.84-5.20); LYMPHOCYTES PERCENT AUTO 30 % (21-46); MONOCYTES ABSOLUTE AUTO 0.74 K/mm3 (0.16-1.47); MONOCYTES PERCENT AUTO 8 % (4-13); Mean Corpuscular HGB 30.4 pg (26.0-34.0); Mean Corpuscular HGB Conc 34.8 g/dL (31.5-36.5); Mean Corpuscular Volume 88 fL (80-100); NEUTROPHILS ABSOLUTE AUTO 5.63 K/mm3 (1.96-9.15); NEUTROPHILS PERCENT AUTO 60 % (41-73); Platelet Count 301 K/mm3 (150-400); Potassium, Blood 3.7 mmol/L (3.5-5.5); RDW Coefficient Variation 12.8 % (11.7-14.2); RDW Standard Deviation 40.8 fL (35.1-46.3); Red Blood Cell Count 5.75 M/mm3 (4.30-5.90); Total Protein, Blood 7.5 g/dL (6.4-8.2)
[2024-06-13 22:07] VITALS: BP 144/103
== END 2024-06-13 22:15 | disposition home or self-care (01) ==
LOC: ER 20:26
PROVIDERS: Physician Assistant
DX: R07.89 Other chest pain (principal); F17.290 Nicotine dependence, other tobacco product, uncomplicated; Z79.899 Other long term (current) drug therapy; Z88.0 Allergy status to penicillin; Z88.5 Allergy status to narcotic agent
CPT/HCPCS: 71046; 80053; 83880; 84484; 85025; 93005; 93010; 99285-25

== ENCOUNTER 2024-07-23 06:02 | Emergency (ER) | payer OTHER ==
[~2024-07-23] VITALS: Ht 167.6 cm; Wt 72.6 kg
[2024-07-23 06:17] VITALS: BP 136/88
[2024-07-23] MEDS ORDERED: ALBU90OI INH (07:14)
[2024-07-23] MEDS ORDERED: PRED20 PO (07:14)
== END 2024-07-23 07:32 | disposition home or self-care (01) ==
LOC: ER 06:02
DX: J06.9 Acute upper respiratory infection, unspecified (principal); F17.290 Nicotine dependence, other tobacco product, uncomplicated; Z79.899 Other long term (current) drug therapy; Z88.0 Allergy status to penicillin; Z88.5 Allergy status to narcotic agent
CPT/HCPCS: 99282

== ENCOUNTER 2024-09-07 07:35 | Emergency (ER) | payer OTHER ==
[~2024-09-07] VITALS: Ht 167.6 cm; Wt 72.0 kg
[~2024-09-07 07:35] MED LIST changes: +ALBU90OI INH; +PRED20 PO
[2024-09-07 07:40] VITALS: BP 139/91
[2024-09-07] MEDS ORDERED: PRED20 PO (08:41)
[2024-09-07] MEDS ORDERED: ALBU90OI INH (08:41)
== END 2024-09-07 08:51 | disposition home or self-care (01) ==
LOC: ER 07:35
DX: J39.9 Disease of upper respiratory tract, unspecified (principal); B34.9 Viral infection, unspecified; Z79.52 Long term (current) use of systemic steroids; Z88.0 Allergy status to penicillin; Z88.5 Allergy status to narcotic agent
CPT/HCPCS: 99283